=== PATIENT | female | born 1990 | race Hispanic/Latino ===

== ENCOUNTER 2019-07-21 17:03 | Emergency (ER) | payer BC, SELFPAY ==
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
[2019-07-21] MEDS ORDERED: IBUPROFEN 400 MG TAB ONE (17:33)
[2019-07-21] MEDS ORDERED: DIAZEPAM 2 MG TABLET ONE (17:33)
[2019-07-21 18:02] VITALS: BP 139/94; TEMP 98; O2SAT 98
== END 2019-07-21 17:38 | disposition home or self-care (01) ==
LOC: ER 17:03
DX: M79.10 Myalgia, unspecified site (principal); V44.5XXA Car driver injured in collision with heavy transport vehicle or bus in traffic accident, initial encounter; Y93.89 Activity, other specified; Y92.410 Unspecified street and highway as the place of occurrence of the external cause
CPT/HCPCS: 99284